=== PATIENT | male | born 1965 | race Caucasian/White ===

== ENCOUNTER 2020-08-06 08:21 | Outpatient (REF) | payer BC, SELFPAY ==
[2020-08-06 10:20] LABS: Hematocrit 46.2 % (42-52); Hemoglobin 15.5 g/dl (14.0-18.0); Mean Corpuscular HGB Conc 33.5 g/dl (31.0-36.0); Mean Corpuscular Hemoglobin 31.4 pg (27.0-33.0); Mean Corpuscular Volume 93.5 fL (80-98); Mean Platelet Volume 11.1 fL (9.4-12.4); Platelet Count 208 X10*3/uL (160-400); Red Blood Count 4.94 X10*6/uL (4.60-5.80); Red Cell Distribution Width 12.4 % (11.0-16.0); White Blood Count 4.1 X10*3/uL (4.8-10.8)
[2020-08-06 10:29] LABS: Alanine Aminotransferase 19 U/L (0-40); Albumin Level 4.6 g/dL (3.5-5.0); Alkaline Phosphatase 63 U/L (39-117); Anion Gap 18 (12-20); Aspartate Amino Transferase 19 U/L (5-37); Bilirubin Direct 0.3 mg/dL (0.0-0.5); Bilirubin Total 0.8 mg/dL (0.0-1.0); Blood Urea Nitrogen 11 mg/dL (9-16); Calcium 9.3 mg/dL (8.4-10.2); Carbon Dioxide 22 mmol/L (22-29); Chloride 102 mmol/L (96-108); Cholesterol 175 mg/dL; Estimated Glomerular Filt Rate > 60; Glucose Random 103 mg/dL (60-115); HDL Cholesterol 45 mg/dL; LDL Cholesterol Calculated 111 mg/dl; Potassium 4.5 mmol/l (3.3-5.1); Sodium 137 mmol/L (135-145); Total Protein 7.1 g/dL (6.5-8.0); Triglycerides 98 mg/dL
== END 2020-08-06 08:22 | disposition home or self-care (01) ==
LOC: HO.10HDL 08:21
PROVIDERS: Visit Provider Internal Medicine
DX: I10 Essential (primary) hypertension (principal)
CPT/HCPCS: 36415; 80048; 80061; 80076; 85027

== ENCOUNTER → 2021-01-12 11:21 | Outpatient (BNVA) | payer BC, SELFPAY | PROVIDERS: PCP Internal Medicine; Visit Provider Surgery Vascular Surgery ==

== ENCOUNTER 2021-02-02 07:57 | Outpatient (REF) | payer BC, SELFPAY ==
--- NOTE | ~2021-02-02 | US_ITS ---
EXAMINATION: NONINVASIVE ASSESSMENT OF THE ARTERIES OF BOTH LOWER EXTREMITIES WITH ANKLE PRESSURE MEASUREMENTS, ANKLE BRACHIAL INDICES, PVR MEASUREMENTS AND BILATERAL LOWER EXTREMITY DUPLEX. CLINICAL INFORMATION: Peripheral vascular disease TECHNIQUE: Ankle pressure measurements, ankle brachial indices and PVR tracings were obtained of the lower extremity arterial system bilaterally. In addition, duplex Doppler techniques with wave form analysis and measurement of velocities in the common femoral, profunda femoral, superficial femoral, popliteal and tibial arteries was performed. The study was performed only at rest. COMPARISON: None FINDINGS: NONINVASIVE ASSESSMENT OF THE ARTERIES OF BOTH LOWER EXTREMITIES WITH ABIs: RIGHT LEG: Right ankle-brachial index: 1.13 PVR (ankle): Decreased amplitude LEFT LEG: Ankle-brachial index: 1.09 PVR (ankle): Decreased amplitude BILATERAL LOWER EXTREMITY DUPLEX ULTRASOUND: RIGHT LEG: Common femoral artery: 71.5 cm/s, Diastolic flow reversal: Yes Profunda femoris artery: 41.3 cm/s, Diastolic flow reversal: Yes Superficial femoral artery (proximal): 67.3 cm/s, Diastolic flow reversal: Yes Superficial femoral artery (mid): 63.9 cm/s, Diastolic flow reversal: Yes Superficial femoral artery (distal): 41.8 cm/s, Diastolic flow reversal: Yes Popliteal artery: 36.4 cm/s, Diastolic flow reversal: Yes Posterior tibial artery: 53.6 cm/s, Diastolic flow reversal: Yes LEFT LEG: Common femoral artery: 58.2 cm/s, Diastolic flow reversal: Yes Profunda femoris artery: 47.6 cm/s, Diastolic flow reversal: Yes Superficial femoral artery (proximal): 78.3 cm/s, Diastolic flow reversal: Yes Superficial femoral artery (mid): 59.5 cm/s, Diastolic flow reversal: Yes Superficial femoral artery (distal): 41.3 cm/s, Diastolic flow reversal: Yes Popliteal artery: 40.4 cm/s, Diastolic flow reversal: Yes Posterior tibial artery: 41.3 cm/s, Diastolic flow reversal: Yes Fluid seen within the left popliteal fossa is most consistent with a small Urena's cyst. US/US arterial duplex LE BI IMPRESSION: RIGHT LEG: No evidence of right lower extremity arterial insufficiency by NITA or duplex criteria. LEFT LEG: No evidence of left lower extremity arterial insufficiency by NITA or duplex criteria. NITA Reference: - >0.97-1.25 = normal - no significant arterial disease - 0.75-0.96 = mild peripheral arterial disease - 0.5-0.74 = moderate peripheral arterial disease - <0.50 = severe peripheral arterial disease
== END 2021-02-02 07:58 | disposition home or self-care (01) ==
LOC: HO.US 07:57
PROVIDERS: Visit Provider Surgery Vascular Surgery
DX: I73.9 Peripheral vascular disease, unspecified (principal)
CPT/HCPCS: 93923; 93925

== ENCOUNTER → 2021-02-09 08:44 | Outpatient (BNVA) | payer BC, SELFPAY | PROVIDERS: PCP Internal Medicine; Visit Provider Surgery Vascular Surgery ==

== ENCOUNTER 2024-12-11 08:19 | Outpatient (REF) | payer BC, SELFPAY ==
--- OUTSIDE RECORDS SUMMARY | 2024-12-11 08:30 | XMS_ITS | Clinical Summary ---
Author Organization [facility] Address [address] [place] [address] Care Team Providers Care Pharmacy Clinical Coordinator Name Role Phone Unavailable Primary Care Provider Unavailabl e Immunizations Name Administration Dates Next Due Covid-19 (Pfizer) Dilution Required 11/16/2020,0 10/26/2020 Social History Tobacco Use Types Packs/Day Years Used Date Smoking Tobacco: Never Assessed Sex and Gender Information Value Date Recorded Sex Assigned at Male 10/26/2020 8:53 AM EDT Gender Identity Not on file Sexual Orientation Not on file Job Start Date Occupation Industry Not on file Not on file Not on file Plan of Treatment Health Maintenance Due Date Last Done Comments Hepatitis C Screening 1965 Depression Screening 1975 Preventative Health Evaluation 12/19/1981 DTap / Tdap / Td (1 - Tdap) 12/19/1982 Colon Cancer Screening (Colonoscopy) 12/19/2008 Shingrix-Zoster Vaccine (2 o f 2) 10/09/2021 08/14/2021 COVID-19 Vaccine (3 - 2023-2 5 season) 2024 11/16/2020, 10/26/2020 Influenza Vaccine (#1) 2024 07/07/2020 RSV Adult > 60+ Yrs or (1 - 1-dose 75+ series) 12/19/2038 Hepatitis B Vaccines Aged Out No long er eligible based on patient's age to complete this topic Pneumococcal Vaccine Aged Out No long er eligible based on patient's age to complete this topic RSV Ped < 20 months Aged Out No longe r eligible based on patient's age to complete this topic
--- OUTSIDE RECORDS SUMMARY | 2024-12-11 08:30 | XMS_ITS | Clinical Summary ---
Author Organization [facility] Address [address] [place] [address] Care Team Providers Care Applications Scientist Name Role Phone Pcp, No Primary Care Provider Unavailabl e Allergies No known active allergies Medications ALPRAZolam (XANAX) 0.5 MG tablet Take 0.5 mg by mouth nightly as needed. for sleep 10/29/2021 Active escitalopram (LEXAPRO) 10 MG tablet Take 10 mg by mouth daily. 09/24/2021 Active predniSONE (DELTASONE) 20 MG tabletIndication s:Acute gout involving toe of right foot, unspecified cause Take 3 tabs PO x 3 days, then 2 tabs PO x 3 days, then 1 tab PO x 3 days. With food. 18 tablet 11/10/2021 Active Active Problems No known active problems Immunizations Immunization Administration Dates Next Due Influenza, Quadrivalent (FLU ARIX, AFLURIA, FLULAVAL, FLUZONE) Preservative Free IM 07/07/2020 Zoster Vaccine Recombinant (Shingrix) 08/14/2021 Social History Tobacco Use Types Packs/Day Years Used Date Smoking Tobacco: Never Assessed Sex and Gender Information Value Date Recorded Sex Assigned at Not on file Legal Sex Male 8:48 AM EDT Gender Identity Not on file Sexual Orientation Not on file Last Filed Vital Signs Vital Sign Reading Time Taken Comments Blood Pressure 135/98 11/10/2021 9:01 AM EDT Pulse 89 11/10/2021 8:58 AM EDT Temperature 36.7 ??C (98.1 ??F) 11/10/2021 8:58 AM ED T Respiratory Rate - - Oxygen Saturation 98% 11/10/2021 8:58 AM EDT Inhaled Oxygen Concentration - - Weight 90.7 kg (200 lb) 11/10/2021 8:58 AM EDT Height 182.9 cm (6') 11/10/2021 8:58 AM EDT Body Mass Index 27.12 11/10/2021 8:58 AM EDT Plan of Treatment Health Maintenance Due Date Last Done Comments Hepatitis C Virus Screening 1965 HIV Screening 12/19/1976 DTaP/Tdap/Td Vaccines (1 - Tdap) 12/19/1982 Colonoscopy 12/19/2008 Pneumococcal Vaccines 50+ (1 of 1 - PCV) 12/19/2013 Zoster (Shingles) Vaccine (2 of 2) 10/09/2021 08/14/2021 COVID-19 Vaccine (4 - 2023-2 5 season) 2024 08/09/2021, 11/16/2020, 10/26/2020 Influenza Vaccine 02/28/2025 07/07/2020 RSV Vaccine 60 years and older and Patients (1 - 1-dose 75+ series) 12/19/2038 Hepatitis B Vaccines Aged Out No long er eligible based on patient's age to complete this topic Insurance [facility] PPO Care Teams Applications Scientist Relationship Specialty Start Date End Date Pcp, No PCP - General General Medicine 10/29/21
--- OUTSIDE RECORDS SUMMARY | 2024-12-11 08:30 | XMS_ITS | Data Portability ---
Author Organization [place] [facility] Address [address] [place] [address] Care Team Providers Care Paratransit Driver Name Role Phone RAMIRO HERRERA Primary Care Provider Assessment Encounter Date Assessment Date Assessment LastModified by Organization Details LastModified Time 02/08/2023 02/08/2023 HPI : ?Thank you for the pleasure of requesting a consultation on this patient. Patient comes in complaining of left knee pain. He has been dealing with left knee pain for 42 years. He has a history of open left knee cartilage and meniscal surgery from 1981. He has had on and off treatment since then. His last injection was over 5 years ago. This patient is experiencing left knee pain for a period lasting greater than the last three months, which is severe (VAS score greater than or equal to 6 on a 0-10 scale) in intensity and the restriction of function (appropriate for a patient of this age) are intolerable. The pain substantially limits activities of daily living. In particular, walking tolerance and ability to stair climb is reduced. Conservative management such as non-steroidal anti-inflammatory medications available by prescription, physician directed therapy, ice and/or heat and activity modification have been minimally effective or deemed insufficient by the patient for a period lasting greater than 3-6 months in duration. Assistive devices and external support were not deemed by the patient to be helpful in improving their function. The patient is unable to tolerate further conservative measures, including physical therapy, due to the severity of arthritis and level of pain. Review of systems is negative for rapidly progressive neurological disorder, chest pain, shortness of breath, fevers, chills, or any signs of active or persistent local or systemic infection. Physical Exam : Patient is well nourished, well-developed, in no acute distress, with appropriate mood and affect. The patient is oriented to time, place, and person. Respirations are even and unlabored. Gait evaluation does reveal a limp. There is no inguinal adenopathy. Examination of the contralateral knee shows normal range of motion, strength, no tenderness, and intact skin. The affected limb is well-perfused, medial based skin incision, the knee shows a grossly normal motor and sensory examination. Left knee motion is significantly reduced and does cause significant pain. The knee moves from 10-115 degrees. The knee is stable within that [id number] to AP and ML stress. The alignment of the knee is varus. Muscle strength is normal. Pedal pulses are palpable. Hip examination, including flexion and internal rotation, was negative in that groin pain was not produced. Assessment/Plan : The patient is an appropriate candidate for consideration of left total knee replacement. An extensive discussion was conducted of the natural history of the disease and the variety of surgical and non-surgical treatment options available to the patient. A risk/benefit analysis was discussed with the patient reviewing the advantages and disadvantages of surgical intervention at this time. A full explanation was given of the nature and the purpose of the procedure and anesthesia, its benefits, possible alternative methods of diagnosis of treatment, the risks involved, the possibility of complications, the foreseeable consequences of the procedure and the possible results of the non-treatment. No guarantee or assurance was made as to the results that may be obtained. Specifically, the risks were identified to include, but are not limited, to the following: Infection, phlebitis, pulmonary embolism, , paralysis, dislocation, pain, stiffness, instability, limp, weakness, breakage, leg-length inequality, uncontrolled bleeding, nerve injury, blood vessel injury, pressure sores, anesthetic risks, delayed healing of wound and bone, and wear and loosening. Additional risks of robotic knee replacement were discussed (if used) including but not limited to pin site infection, draining, longer incision, longer OR time, and fracture near the pin sites. Further discussion was undertaken with the patient about the details of surgical preparation, treatment and postoperative rehabilitation including medical clearance, autotransfusion, the hospital course and the postoperative rehabilitation involved. As a part of routine preoperative counseling, if the patient is a smoker, the patient recognizes the increased risk of complications in patients who utilize tobacco products. The patient has also been counseled regarding the elevated risk of surgical complications in patients with an elevated BMI. The patient demonstrates understanding of the increased risk in such patients. The patient was encouraged to participate in physical activity and diet modification under the direction of their primary care physician. We will plan on proceeding with left total knee arthroplasty using the [employer] total knee replacement system. However, it is possible during the preoperative planning process or due to intraoperative findings that a different implant system may be utilized in order to optimize the patient's outcome. We had a discussion regarding implant and bearing options. We had a detailed discussion of the advantages and limitations of the specific implant designs, materials and bearing surfaces. All questions were answered to the patient's satisfaction, and the patient was asked to call the office with any further concerns. All in all, I feel that this patient is a good candidate for surgical reconstruction.? Plan for left total knee replacement, robotic assisted, at [facility]. Not available 02/08/2023 14:20:37 Plan of Treatment Reminders Order Date Submit Date Provider Last Modified By Organization Details Last Modified Time Details Appointments None recorded. Lab None recorded. Referral None recorded. Procedures None recorded. Surgeries total knee replacement (SURG) 2022 023 0 [facility], [address] [place], [address], 3 15:10:21 Imaging XR, knee, 4 or more view 2022 023 [email or web address], [address], [place], [address], 14:23:47 Medication Orders None recorded. Patient TargetsNo targets recorded. Patient Instructions Encounter Date Encounter Id Patient Instructions Last Modified By Organization Details Last Modified Time 02/08/2023 [id number] AP, lateral, Boyer, and patellar radiographs views of the left knee taken today demonstrate left knee degenerative joint disease with joint space narrowing, osteophyte formation, and subchondral sclerosis. There is [id number] articulation in the medial compartment. Not available 02/08/2023 14:22:00 Reason for Referral None Reported. Problems Name Problem SNOMED Code Status Onset Date Resolution Date Notes Provider Name and Address Organization Details Recorded Time Osteoarthri tis of left knee joint 7229474110185 09 Active 2022 Adriano Hui MD [address], [place], [address], [place] [facility], [facility] 3 14:18:39 Arthritis of knee 670895974 Active 2022 Adriano Hui MD [address], [place], [address], [place] [facility], [facility] 3 14:20:32 Problem Notes None recorded. Procedures Surgical History Date Name Laterality Status Provider Name and Address Organization Details Recorded Time [facility]nee [facility] 02/08/2023 13:58:11 Imaging Results None recorded. Procedure Notes None recorded. Medical Equipment None Reported. Allergies No known drug allergies Medications Not known to be on any medication Vitals Date Recorded Body height Body mass index (BMI) Body weight Provider Name and Address Organization Details Last Updated DateTime 02/08/2023 182.88 cm 27.8 kg/m2 32465.44 g [facility] 02/08/2023 13:57:47 Social History None recorded. Functional Status None recorded. Mental Status None recorded. Family History Nothing Reported. Medical History Condition Response Gout Y Past Encounters Encounter ID Performer Location Encounter Start Date Encounter Closed Date Diagnosis/Indication Diagnosis SNOMED-CT Code Diagnosis ICD10 Code Diagnosis Note [id number] MD NAVEED Dawkins [address] [place] [address] 02/08/2023 13:46:32 02/08/2023 14:23:47 Pain of left knee joint [id number] 64102 M25.562 Osteoarthr itis of left knee joint 5879863325 16776 M17.12 Arthritis of knee 983631 002 M13.869 Health Concerns Section Related Observation LastModified by Organization Detai ls LastModified Time None Recorded Concern Status LastModified by Organization Details LastModified Time None Recorded Advance Directives Directive None Recorded Payers Encounter Date Sequence Insurance Name Policy Number Policy Siu Covered Member ID Siu Member ID Guarantor Name 02/08/2023 1 [place]: TELMA SMITH [id number] Ney Galdamez [id number] Ney Galdamez
[2024-12-11 09:59] LABS: Appearance Urine Clear; Color Urine Yellow; Glucose Urine UA Negative (Negative); Leukocyte Esterase Urine Negative (Negative); Nitrite Urine Negative (Negative); Specific Gravity - Urine <= 1.005 (1.005-1.025); Urine Blood Negative (Negative); Urine Ketones Negative (Negative); Urine Protein Negative (Neg-Trace)
[2024-12-11 10:04] LABS: Hematocrit 47.5 % (42.0-52.0); Hemoglobin 16.6 g/dl (14.0-18.0); Mean Corpuscular HGB Conc 34.9 g/dl (31.0-36.0); Mean Corpuscular Hemoglobin 31.4 pg (27.0-33.0); Mean Platelet Volume 10.2 fL (9.4-12.4); Platelet Count 224 X10*3/uL (160-400); Red Blood Count 5.28 X10*6/uL (4.60-5.80); Red Cell Distribution Width 12.9 % (11.0-16.0); White Blood Count 6.2 X10*3/uL (4.8-10.8)
[2024-12-11 10:15] LABS: Estimated Average Glucose 111 mg/dL; Hemoglobin A1C 155.7632 umol/L; Hemoglobin A1c % 5.5 % (<6.0); Total Hemoglobin (HGBA1C) 4242.1478 umol/L
[2024-12-11 10:45] LABS: Prostate Specific Antigen Scr 2.35 ng/mL (<0.05-4.0)
[2024-12-11 10:48] LABS: Alanine Aminotransferase 39 U/L (0-40); Albumin Level 4.6 g/dL (3.5-5.0); Alkaline Phosphatase 78 U/L (39-117); Anion Gap 15 (12-20); Aspartate Amino Transferase 32 U/L (5-37); Bilirubin Direct 0.2 mg/dL (0.0-0.5); Bilirubin Total 0.9 mg/dL (0.0-1.0); Blood Urea Nitrogen 11 mg/dL (9-16); Calcium 9.6 mg/dL (8.4-10.2); Carbon Dioxide 25 mmol/L (22-29); Chloride 101 mmol/L (96-108); Cholesterol 221 mg/dL (<200); Estimated Glomerular Filt Rate > 60; Glucose Random 107 mg/dL (60-115); HDL Cholesterol 56 mg/dL (>40); LDL Cholesterol Calculated 134 mg/dL (<100); Potassium 4.1 mmol/L (3.3-5.1); Sodium 137 mmol/L (135-145); Thyroid Stimulating Hormone 1.69 uIU/mL (0.32-4.0); Total Protein 7.2 g/dL (6.5-8.0); Triglycerides 158 mg/dL (<150)
== END 2024-12-11 08:20 | disposition home or self-care (01) ==
LOC: HO.10HDL 08:19
PROVIDERS: Visit Provider Internal Medicine
DX: F41.1 Generalized anxiety disorder (principal); I73.9 Peripheral vascular disease, unspecified; Z12.5 Encounter for screening for malignant neoplasm of prostate; Z13.1 Encounter for screening for diabetes mellitus; Z13.6 Encounter for screening for cardiovascular disorders
CPT/HCPCS: 36415; 80048; 80061; 80076; 81003; 83036; 84153; 84443; 85027

== ENCOUNTER 2024-12-12 08:10 | Outpatient (AMB) | payer BC, SELFPAY ==
--- OUTSIDE RECORDS SUMMARY | 2024-12-12 08:13 | XMS_ITS | Clinical Summary ---
Author Organization [facility] Address [address] [place] [address] Care Team Providers Care Stonemason Apprentice Name Role Phone Pcp, No Primary Care [...] patient's age to complete this topic Insurance [facility] PPO Care Teams Stonemason Apprentice Relationship Specialty Start Date End Date Pcp, No PCP - General General Medicine 10/29/21
[2024-12-12 08:23] VITALS: BP 150/110; PULSE 101; RESP 24; TEMP 37.2; O2SAT 99; BMI 29.2
--- NOTE | 2024-12-12 08:23 | MHC.PC.OV ---
Vital Signs 12/12/24 08:23 12/12/24 09:17 Height 6 ft Weight 215 lb 6.4 oz BMI 29.2 BP 150/110 H 156/98 H Blood Pressure Location Lt brachial Lt brachial Position Sitting Sitting Respiration 24 H Pulse 101 H 98 Pulse Source Pulse Oximeter Auscultation Temp 99.0 F Temp Source Oral Pulse Oximetry (%) 99 Oxygen Delivery Method Room Air Intake Visit Reasons: annual exam Supervisory Historian Required: No Accompanied by: Self / Same As Patient Allergies No Known Allergies Allergy (Verified 12/12/24 08:52) Medication List - Last Reconciled 12/12/24 by ALEJANDRO Amaya No Known Home Meds Tobacco use date assessed: 12/12/24 Dental Screening Dental Screen Date: 12/12/24 Did you have a dental visit in the last 12 months?: Yes Did you have a dental problem in the last 6 months where you did not have access to dental care?: No Was dental information given to patient?: Patient has dentist HPI annual exam HPI Details Dentist: up to date Eye: in while, encouraged to make an appt Snellen: Right: Left: Corrected vision:supposed to wear glasses at night for glare, but he does not drive at night STI screening: Colonoscopy: declines colonoscopy, will try cologuard test instead Pap Smer:n/a PHQ-9: Flu:Did not get it last year shingle vaccine: up to date Pneumonia vaccine:will follow up for the pneumonia vaccine COVID: x3 Tdap:no record Diet: regular Exercise: used to walk a lot, left knee pain preventing him psychiatry: reports never have one, but would like to be referred Therapy: [facility], cannot remember the name, was going every weeks SSRI:Does not remember taking any other medication besides xanax. Chart review, stated he stopped taking his lexapro. will refer the patient with psychiatry Alcohol: Reports drinking 6 beers in each setting/3 times a week Left knee: needs to be replaced-got scared and did not follow up. Reports that his orthopedic is in [place], [place]. HEALTH MAINTENANCE: - Patient has received the shingles vaccine (two doses) and routinely receives flu shots although not this year, and is aware he needs the pneumonia vaccine, now being above 60 years. - Regular dental check-ups every six months. - Instructed to pursue an eye examination due to a lapse in routine check-ups. - Reluctance towards blood screening for colorectal cancer with colonoscopy but showed interest in Cologuard testing. - Recommended dietary modifications to manage cholesterol, which was observed to be high. [facility] Medical History Generalized anxiety disorder PAD (peripheral artery disease) Raynaud's disease without gangrene Surgical History History of left knee surgery Family History Father Dementia Mother Breast cancer Brother No problems noted. Sister No problems noted. Other Mental health disorder Social History Housing: Condominium Alcohol intake: current Alcohol intake frequency: a few times a month Patient Tobacco Use Status: Never used Tobacco e-Cigarette/Vaping Use: Never Used Second Hand Smoke Exposure: No service: No Current occupational status: employed Cognitive needs: No Hearing needs: No Vision needs: No Questionnaire PHQ-9 Over the last 2 weeks, how often have you been bothered by any of the following problems? 1. Little interest or pleasure in doing things: several days 2. Feeling down, depressed, or hopeless: several days 3. Trouble falling or staying asleep, or sleeping too much: several days 4. Feeling tired or having little energy: several days 5. Poor appetite or overeating: several days 6. Feeling bad about yourself - or that you are a failure or have let yourself or your family down: several days 7. Trouble concentrating on things, such as reading the newspaper or watching television: several days 8. Moving or speaking so slowly that other people could have noticed. Or the opposite - being so fidgety or restless that you have been moving around a lot more than usual: several days 9. Thoughts that you would be better off or of hurting yourself in some way: several days Total score: 9 Depression Screening Interpretation: Positive Depression Screening Done: Yes 36086 - PHQ-9 Billing: Yes Source: Developed by Payton PinedoW. Christiano, Art Marshall and colleagues, with an educational maría elena from [employer]. Thrive Questionnaire Date Thrive assessed: 12/12/24 I am a: Patient What is your living situation today?: I have a steady place to live Within the past 12 months, did the food you bought not last and you didn't have the money to get more?: Never true Within the past 12 months, did you worry whether your food would run out before you got money to buy more?: Never true Do you have trouble paying for medicines?: No Do you have trouble getting transportation to medical appointments?: No Do you have trouble paying your heating and electricity bill?: No Do you have trouble taking care of your child, family member or friend?: No Do you have trouble with day-to-day activities such as bathing, preparing meals, shopping, managing finances, etc.?: No Are you currently unemployed and looking for a job?: No Are you interested in more education?: No Please select the resources that you would like help with: None Currently or been in a relationship where the following occur: No concerns reported THRIVE Score: 0 AUDIT C Alcohol Use Questionnaire (AUDIT-C) 1. How often do you have a drink containing alcohol?: 2-3 times a week 2. How many drinks containing alcohol do you have on a typical day when you are drinking?: 3 or 4 3. How often do you have six or more drinks on one occasion?: Weekly Total Score: 7 Score Reviewed/Action Taken: Yes JOSE-7 AMB Questionnaire JOSE-7 Date JOSE - 7 assessed: 12/12/24 Feeling nervous, anxious, or on edge: 3 = Nearly every day Not being able to stop or control worryin = Nearly every day Worrying too much about different things: 3 = Nearly every day Trouble relaxin = Nearly every day Being so restless that it is hard to sit still: 3 = Nearly every day Becoming easily annoyed or irritable: 3 = Nearly every day Feeling afraid as if something awful might happen: 3 = Nearly every day Total JOSE-7 score (0-4 normal; 5-9 mild; 10-14 moderate; 15-21 severe): 21 Source: Developed by Payton Pinedo Kurt Kroenke and colleagues, with an educational maría elena from [employer]. JOSE-7 Assessment Billing JOSE-7 Assessment Tool: JOSE-7 Assessment 27528 Review of Systems Const Denies headache(s) Eyes Denies loss of vision ENT Denies vertigo, Denies dizziness, Denies headache(s) and Denies sore throat Card Denies chest pain, Denies leg edema and Denies lightheadedness Resp Denies cough, Denies hemoptysis and Denies wheezing GI Denies abdominal pain, Denies melena, Denies constipation, Denies diarrhea and Denies vomiting Denies dysuria, Denies urinary frequency and Denies urinary urgency Musc Reports arthralgias (left knee pain), Denies joint swelling, Denies numbness and Denies tingling Neuro Denies Abnormal speech present, Denies behavioral changes, Denies vertigo, Denies dizziness, Denies headache(s), Denies loss of vision, Denies memory loss, Denies numbness and Denies tingling Psych Reports anxiety, Denies behavioral changes, Reports depression, Denies memory loss and Reports panic attacks Toñito/Lymph Denies easy bleeding and Denies easy bruising Aller/Immun Denies wheezing Physical exam (Primary Care) Vital Signs: Last Vital Signs Temp 99.0 F 12/12/24 08:23 Pulse 101 H 12/12/24 08:23 Resp 24 H 12/12/24 08:23 BP 150/110 H 12/12/24 08:23 Pulse Ox 99 12/12/24 08:23 Oxygen Delivery Method Room Air 12/12/24 08:23 BMI result Body Mass Index 29.2 Tobacco/Smoking Status: Tobacco use Status Tobacco use date assessed 12/12/24 12/12/24 08:32 Patient Tobacco Use Status Never used Tobacco 12/12/24 08:32 e-Cigarette/Vaping Use Never Used 12/12/24 08:32 PHQ-9: PHQ-9 Score PHQ-9: Total score 9 12/12/24 08:50 Depression Screening Interpretation: Positive Thrive Assessment: Date of Thrive Assessment Date Thrive assessed 12/12/24 12/12/24 08:32 Currently or been in a relationship where the following occur: No concerns reported Const General: healthy appearing, no acute distress, alert and awake Nutritional Appearance: well nourished Orientation/consciousness: oriented to person, oriented to place and oriented to time HENMT Ears: TM's normal bilaterally General nose exam: Normal nasal mucous membranes and turbinates present Eyes Conjunctivae: conjunctivae normal Sclerae: sclerae normal Pupils: Equal, round and reactive pupils present Neck Neck: Yes no lymphadenopathy and Yes no JVD Thyroid: Thyroid normal Carotids: no bruits Resp Effort & Inspection: normal respiratory effort and not tachypneic Auscultation: no crackles, no rales, no rhonchi and no wheezes Cardio Rate: regular rate Rhythm: regular rhythm Heart sounds: no murmurs and normal S1 and S2 GI Palpation (GI): Soft to palpation, nontender, no hepatomegaly and no splenomegaly Auscultation: normal bowel sounds Skin General skin exam: no rashes or lesions noted and dry skin Neuro General: oriented to person, oriented to place and oriented to time Cranial nerves: Yes Equal, round and reactive pupils present Speech: No Abnormal speech present Gait exam (Neuro): Normal gait present Motor exam (neuro): no tremor noted Extrem Right upper extremity: full ROM Left upper extremity: full ROM Right lower extremity: full ROM; no edema Left lower extremity: full ROM and knee Details: no tenderness; no edema Psych Mental Status: mental status grossly normal Speech and movement: Normal speech and movement present Affect: Anxious affect present Attitude: cooperative Thought process: Normal thought process present Office Procedures EKG [id number], Complete Immunizations Boostrix Tdap 2.5 Lf unit-8 mcg-5 Lf/0.5 mL intramuscular syringe Performing Provider: ALEJANDRO Amaya [facility] Administered by: Kiera Galarza CMA on 12/12/24 09:13 Dose Route Admin Location Dispensed Lot Number Expiration Date FORMERLY NAMED [facility] Zipper Cutter 0.5 mL IM Right Deltoid 0.5 mL [id number] 03/25/27 35903-402-32 [employer] VIS Given Date VIS Provided VIS Publication Date 12/12/24 Single Vaccine 24 Eligibility Eligibility Date Funding Source Not [facility] Eligible 12/12/24 Private Results Reviewed Results Reviewed: Laboratory Tests 12/11/24 08:25 WBC 6.2 RBC 5.28 Hgb 16.6 Hct 47.5 MCV 90.0 MCH 31.4 RDW 12.9 Plt Count 224 Sodium 137 Potassium 4.1 Chloride 101 Carbon Dioxide 25 Anion Gap 15 BUN 11 Creatinine 1.20 Estimated GFR > 60 Random Glucose 107 Estimat Average Glucose 111 Hemoglobin A1c % 5.5 Calcium 9.6 Total Bilirubin 0.9 Direct Bilirubin 0.2 AST 32 ALT 39 Alkaline Phosphatase 78 Total Protein 7.2 Albumin 4.6 Triglycerides 158 H Cholesterol 221 H LDL Cholesterol, Calc 134 H HDL Cholesterol 56 PSA Screen 2.35 TSH 1.69 Urine Color Yellow Urine Appearance Clear Urine pH 7.0 Ur Specific [place]iskey <= 1.005 Urine Protein Negative Urine Glucose (UA) Negative Urine Ketones Negative Urine Blood Negative Urine Nitrite Negative Ur Leukocyte Esterase Negative Coding Level of Care Code Est Pt Prev Care 40-64y(04707) Diagnoses Annual physical exam Z00.00 Generalized anxiety disorder F41.1 Mixed hyperglyceridemia E78.3 Unilateral primary osteoarthritis, left knee M17.12 Hypertension, unspecified type I10 Hypertension type: unspecified CPT Codes EKG - CPT: [id number], Complete ([id number]) Additional Codes JOSE-7 Assessment Billing - JOSE-7 Assessment Tool: JOSE-7 Assessment 39366 ([id number]) PHQ-9 - 47314 - PHQ-9 Billing: Yes ([id number]) Time Spent (min) 38 Assessment & Plan Assessment & Plan (1) Annual physical exam: Code(s): Z00.00 - Encounter for general adult medical examination without abnormal findings Category: Medical Plan: Reviewed preventative guidelines and recent labs with the patient. Tdap given in office. Patient already received the shingles vaccine. And will be returning to [facility] for the pneumonia vaccine. Continued to decline colonoscopy, we will order a Cologuard test. (2) Generalized anxiety disorder: Code(s): F41.1 - Generalized anxiety disorder Category: Medical Plan: Patient anxious in office reports that he has been drinking heavily to cope with his anxiety. Per note review, the patient has stopped his SSRI a while back. He was weaned off Xanax, has not seen a therapist or psychiatrist in a while. Reluctant to start the patient on any medication for anxiety due to his heavy alcohol use. We will put in urgent referral to Psychiatry. 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 Encouraged lifestyle modification. We will recheck lipids in 3 months (4) Unilateral primary osteoarthritis, left knee: Code(s): M17.12 - Unilateral primary osteoarthritis, left knee Category: Medical Plan: Reports that he is on bone on bone. His orthopedics is in [facility], they had recommended for him to have surgery of the left knee sometime last year, but he did not follow through. Reports that he will reconnect with them. (5) HTN (hypertension): Code(s): I10 - Essential (primary) hypertension Category: Medical Qualifiers: Hypertension type: unspecified Qualified Code(s): I10 - Essential (primary) hypertension Plan: Patient reports that he was on medication with the pressure prior and he is not sure what happened. Blood pressure is elevated in office, suspecting that his anxiety is driving this as well. 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
[2024-12-12 09:17] VITALS: BP 156/98; PULSE 98
== END 2024-12-12 09:29 | disposition home or self-care (01) ==
PROVIDERS: PCP Internal Medicine
DX: Z00.00 Encounter for general adult medical examination without abnormal findings (principal); F41.1 Generalized anxiety disorder; E78.3 Hyperchylomicronemia; M17.12 Unilateral primary osteoarthritis, left knee; I10 Essential (primary) hypertension; Z23 Encounter for immunization

== ENCOUNTER → 2024-12-12 08:10 | Outpatient (BNVA) | payer BC, SELFPAY | PROVIDERS: PCP Internal Medicine | DX: Z00.00 Encounter for general adult medical examination without abnormal findings (principal); F41.1 Generalized anxiety disorder; E78.3 Hyperchylomicronemia; M17.12 Unilateral primary osteoarthritis, left knee; I10 Essential (primary) hypertension; I73.9 Peripheral vascular disease, unspecified; Z23 Encounter for immunization | CPT/HCPCS: 90471; 90715; 93005; 96127 ==

== ENCOUNTER → 2024-12-19 08:13 | Outpatient (BNVA) | payer BC, SELFPAY | PROVIDERS: PCP Internal Medicine ==

== ENCOUNTER 2025-03-12 08:06 | Outpatient (AMB) | payer BC, SELFPAY ==
--- OUTSIDE RECORDS SUMMARY | 2025-03-12 08:10 | XMS_ITS | Clinical Summary ---
Author Organization [facility] Address [address] [place] [address] Care Team Providers Care Animal Scientist Name Role Phone Unavailable Primary Care Provider [...] season) 2024 11/16/2020, 10/26/2020 Influenza Vaccine (#1) 2025 07/07/2020 RSV Adult > 60+ Yrs or [...]
--- OUTSIDE RECORDS SUMMARY | 2025-03-12 08:10 | XMS_ITS | Clinical Summary ---
Author Organization [facility] Address [address] [place] [address] Care Team Providers Care Summer Nanny Name Role Phone Pcp, No Primary Care [...] 89 11/10/2021 8:58 AM EDT Temperature 36.7 C (98.1 F) 11/10/2021 8:58 AM EDT Respiratory Rate - - Oxygen Saturation 98% [...] patient's age to complete this topic Insurance [facility] PPO Care Teams Summer Nanny Relationship Specialty Start Date End Date Pcp, No PCP - General General Medicine 10/29/21
[2025-03-12 08:19] VITALS: BP 136/88; PULSE 89; O2SAT 98
--- NOTE | 2025-03-12 08:19 | MHC.PC.OV ---
Vital Signs 03/12/25 08:19 Height 6 ft Weight 221 lb BMI 30.0 BP 136/88 Blood Pressure Location Lt brachial Position Sitting Pulse 89 Pulse Source Pulse Oximeter Pulse Oximetry (%) 98 Oxygen Delivery Method Room Air Intake Visit Reasons: 3 month Allergies No Known Allergies Allergy (Verified 03/12/25 08:31) Medication List - Last Reconciled 03/12/25 by ALEJANDRO Amaya hydroxyzine HCl 25 mg PO QID PRN lisinopril 20 mg PO DAILY sertraline 25 mg PO DAILY Tobacco use date assessed: 12/12/24 Dental Screening Dental Screen Date: 12/12/24 HPI 3 month HPI Details The patient is a 59-year-old male presenting with hypertension management. His blood pressure was previously recorded at 140 mmHg, and during this visit, it was noted to be 136 mmHg. He is currently taking lisinopril 20 mg. The patient also reports anxiety, which has been reduced by 50% with sertraline 25 mg daily. He uses hydroxyzine for acute anxiety episodes as needed and has significantly reduced his alcohol and coffee intake. The patient did not get his preordered labs completed for this appointment and he already ate this morning. He will go get this done as soon as he can. No complaints of pain today. Denies chest pain, sob, abdominal pain or change in bowel habits [facility] Medical History Generalized anxiety disorder PAD (peripheral artery disease) Raynaud's disease without gangrene Surgical History History of left knee surgery Family History Father Dementia Mother Breast cancer Brother No problems noted. Sister No problems noted. Other Mental health disorder Social History Housing: Condominium Alcohol intake: current Alcohol intake frequency: a few times a month Patient Tobacco Use Status: Never used Tobacco Tobacco use type: Cigarette e-Cigarette/Vaping Use: Never Used Second Hand Smoke Exposure: No service: No Current occupational status: employed Cognitive needs: No Hearing needs: No Vision needs: No Questionnaire PHQ-9 Over the last 2 weeks, how often have you been bothered by any of the following problems? 1. Little interest or pleasure in doing things: several days 2. Feeling down, depressed, or hopeless: several days 3. Trouble falling or staying asleep, or sleeping too much: several days 4. Feeling tired or having little energy: several days 5. Poor appetite or overeating: several days 6. Feeling bad about yourself - or that you are a failure or have let yourself or your family down: several days 7. Trouble concentrating on things, such as reading the newspaper or watching television: several days 8. Moving or speaking so slowly that other people could have noticed. Or the opposite - being so fidgety or restless that you have been moving around a lot more than usual: several days 9. Thoughts that you would be better off or of hurting yourself in some way: several days Total score: 9 Depression Screening Interpretation: Positive Depression Screening Done: Yes 26480 - PHQ-9 Billing: Yes Source: Developed by Drs. Chip Miller, Payton Alvarado, Art Marshall and colleagues, with an educational maría elena from [employer]. Thrive Questionnaire Date Thrive assessed: 12/12/24 I am a: Patient What is your living situation today?: I have a steady place to live Within the past 12 months, did the food you bought not last and you didn't have the money to get more?: Never true Within the past 12 months, did you worry whether your food would run out before you got money to buy more?: Never true Do you have trouble paying for medicines?: No Do you have trouble getting transportation to medical appointments?: No Do you have trouble paying your heating and electricity bill?: No Do you have trouble taking care of your child, family member or friend?: No Do you have trouble with day-to-day activities such as bathing, preparing meals, shopping, managing finances, etc.?: No Are you currently unemployed and looking for a job?: No Are you interested in more education?: No Please select the resources that you would like help with: None Currently or been in a relationship where the following occur: No concerns reported THRIVE Score: 0 AUDIT C Alcohol Use Questionnaire (AUDIT-C) 1. How often do you have a drink containing alcohol?: 2-3 times a week 2. How many drinks containing alcohol do you have on a typical day when you are drinking?: 3 or 4 3. How often do you have six or more drinks on one occasion?: Weekly Total Score: 7 Score Reviewed/Action Taken: Yes JOSE-7 AMB Questionnaire JOSE-7 Date JOSE - 7 assessed: 12/12/24 Source: Developed by Drs. Chip Miller, Payton Alvarado, Art Marshall and colleagues, with an educational maría elena from [employer]. Review of Systems Const Denies headache(s) Eyes Denies loss of vision ENT Denies vertigo, Denies dizziness, Denies headache(s) and Denies sore throat Card Denies chest pain, Denies leg edema and Denies lightheadedness Resp Denies cough, Denies hemoptysis and Denies wheezing GI Denies abdominal pain, Denies melena, Denies constipation, Denies diarrhea and Denies vomiting Denies dysuria, Denies urinary frequency and Denies urinary urgency Neuro Denies Abnormal speech present, Denies behavioral changes, Denies vertigo, Denies dizziness, Denies headache(s), Denies loss of vision and Denies memory loss Psych Reports anxiety (severity cut in half since started on medication and speaking to therapist), Denies behavioral changes, Denies depression, Denies memory loss and Denies panic attacks Toñito/Lymph Denies easy bleeding and Denies easy bruising Aller/Immun Denies wheezing Physical exam (Primary Care) Vital Signs: Last Vital Signs Pulse 89 03/12/25 08:19 BP 136/88 03/12/25 08:19 Pulse Ox 98 03/12/25 08:19 Oxygen Delivery Method Room Air 03/12/25 08:19 BMI result Body Mass Index 30.0 Tobacco/Smoking Status: Tobacco use Status Tobacco use date assessed 12/12/24 03/12/25 08:21 Patient Tobacco Use Status Never used Tobacco 03/12/25 08:21 Tobacco use type Cigarette 03/12/25 08:21 e-Cigarette/Vaping Use Never Used 03/12/25 08:21 PHQ-9: PHQ-9 Score PHQ-9: Total score 9 03/12/25 08:21 Depression Screening Interpretation: Positive Thrive Assessment: Date of Thrive Assessment Date Thrive assessed 12/12/24 03/12/25 08:21 Currently or been in a relationship where the following occur: No concerns reported Const General: healthy appearing, no acute distress, alert and awake Nutritional Appearance: well nourished Orientation/consciousness: oriented to person, oriented to place and oriented to time [facility] Ears: hearing grossly normal bilaterally General nose exam: Normal external nose present Eyes Conjunctivae: conjunctivae normal Sclerae: sclerae normal Pupils: Equal, round and reactive pupils present Neck Neck: Yes no lymphadenopathy and Yes no JVD Thyroid: Thyroid normal Carotids: no bruits Resp Effort & Inspection: normal respiratory effort and not tachypneic Auscultation: no crackles, no rales, no rhonchi and no wheezes Cardio Rate: regular rate Rhythm: regular rhythm Heart sounds: S1 normal heart sound present, S2 normal heart sound present, no murmurs and normal S1 and S2 GI Palpation (GI): Soft to palpation, nontender, no hepatomegaly and no splenomegaly Auscultation: normal bowel sounds Skin General skin exam: no rashes or lesions noted and dry skin Neuro General: oriented to person, oriented to place and oriented to time Cranial nerves: Yes Equal, round and reactive pupils present Speech: No Abnormal speech present Gait exam (Neuro): Normal gait present Motor exam (neuro): no tremor noted Extrem Right upper extremity: full ROM Left upper extremity: full ROM Right lower extremity: full ROM; no edema Left lower extremity: full ROM; no edema Psych Mental Status: mental status grossly normal Speech and movement: Normal speech and movement present Affect: normal affect Attitude: cooperative Thought process: Normal thought process present Coding Level of Care Code Est Pt Level 3 (05072) Diagnoses Generalized anxiety disorder F41.1 Mixed hyperglyceridemia E78.3 Hypertension, unspecified type I10 Hypertension type: unspecified Additional Codes PHQ-9 - 22274 - PHQ-9 Billing: Yes ([id number]) Time Spent (min) 34 Assessment & Plan Assessment & Plan (1) Generalized anxiety disorder: Code(s): F41.1 - Generalized anxiety disorder Category: Medical Plan: On his previous visit: Patient anxious in office reports that he has been drinking heavily to cope with his anxiety. Per note review, the patient has stopped his SSRI a while back. He was weaned off Xanax, has not seen a therapist or psychiatrist in a while. Reluctant to start the patient on any medication for anxiety due to his heavy alcohol use. The patient was referred to psychiatry at [facility]. He was started on sertraline 25 mg daily and hydroxyzine 25 mg q.8H p.r.n.. Patient is a was also seen the therapist. Reports that his anxiety has cut down by at least 50% and he is doing much better. 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 Encouraged lifestyle modification. Patient did complete his preordered labs as yet. Reports that he will get this done as soon as possible. (3) HTN (hypertension): Code(s): I10 - Essential (primary) hypertension Category: Medical Qualifiers: Hypertension type: unspecified Qualified Code(s): I10 - Essential (primary) hypertension Plan: Patient reports that he was on medication with the pressure prior and he is not sure what happened. Blood pressure is elevated in office, suspecting that his anxiety is driving this as well. Reinforced dash diet Lisinopril 20 mg daily was started and he blood pressure has been doing better. Reinforced low-salt diet
== END 2025-03-12 10:29 | disposition home or self-care (01) ==
LOC: HO.HMCH 08:07
PROVIDERS: PCP Internal Medicine
DX: F41.1 Generalized anxiety disorder (principal); E78.3 Hyperchylomicronemia; I10 Essential (primary) hypertension

== ENCOUNTER → 2025-03-12 08:06 | Outpatient (BNVA) | payer BC, SELFPAY | PROVIDERS: PCP Internal Medicine | DX: F41.1 Generalized anxiety disorder (principal); I10 Essential (primary) hypertension; E78.3 Hyperchylomicronemia | CPT/HCPCS: 96127 ==

== ENCOUNTER 2025-04-10 08:23 | Outpatient (REF) | payer BC, SELFPAY ==
--- OUTSIDE RECORDS SUMMARY | 2025-04-10 09:23 | XMS_ITS | Clinical Summary ---
Author Organization [facility] Address [address] [place] [address] Care Team Providers Care Surface To Air Weapons Officer Name Role Phone Unavailable Primary Care Provider [...] 2) 10/09/2021 08/14/2021 COVID-19 Vaccine (3 - 2024-2 6 season) 2025 11/16/2020, 10/26/2020 Influenza Vaccine (#1) 2025 07/07/2020 [...]
--- OUTSIDE RECORDS SUMMARY | 2025-04-10 09:23 | XMS_ITS | Clinical Summary ---
Author Organization [facility] Address [address] [place] [address] Care Team Providers Care Barrel Cutter Name Role Phone Pcp, No Primary Care [...] patient's age to complete this topic Insurance [facility] PPO Care Teams Barrel Cutter Relationship Specialty Start Date End Date Pcp, No PCP - General General Medicine 10/29/21
--- OUTSIDE RECORDS SUMMARY | 2025-04-10 09:23 | XMS_ITS ---
Author Name [facility] Organization Unknown History of Medication Use Medication Directions Dispensed Refills Start Date End Date Stat us active Problems Problem Status Onset Date Problem Type Date of Resoluti on Source Osteoarthritis of left knee joint active 2023-02-08 ProblemAct [facility] Arthritis of knee active 2023-02-08 ProblemAct [facility] Encounters Encounter Type Encounter Reason Primary Diagnosis Location Date Ambulatory [facility] [place] 02/08/2023 Ambulatory [facility] [place] 02/06/2023 Ambulatory [facility] [place] 02/06/2023 Ambulatory [facility] [place] 01/19/2023 Ambulatory [facility] [place] 01/19/2023 Ambulatory Gout, unspecified [facility] 11/10/2021 Care Team Organization Name Specialty Phone Email Start Date End Da te [facility] [place] 202206/27/2023 [facility] 2022 [facility] 11/10/2021 03/18/2024 [facility] 11/10/2021 11/10/2021
[2025-04-10 11:26] LABS: Alanine Aminotransferase 40 U/L (0-40); Albumin Level 4.8 g/dL (3.5-5.0); Alkaline Phosphatase 69 U/L (39-117); Anion Gap 13 (12-20); Aspartate Amino Transferase 32 U/L (5-37); Blood Urea Nitrogen 17 mg/dL (9-16); Calcium 9.3 mg/dL (8.4-10.2); Carbon Dioxide 24 mmol/L (22-29); Chloride 102 mmol/L (96-108); Cholesterol 248 mg/dL (<200); Estimated Glomerular Filt Rate 56; HDL Cholesterol 49 mg/dL (>40); Potassium 4.2 mmol/L (3.3-5.1); Sodium 135 mmol/L (135-145); Total Protein 7.2 g/dL (6.5-8.0); Triglycerides 190 mg/dL (<150)
[2025-04-10 11:46] LABS: Appearance Urine Turbid; Glucose Urine UA Negative (Negative); PH 5.5 (5.0-9.0); Specific Gravity - Urine 1.020 (1.005-1.025)
== END 2025-04-10 08:24 | disposition home or self-care (01) ==
LOC: HO.10HDL 08:23
DX: I73.9 Peripheral vascular disease, unspecified (principal); I73.00 Raynaud's syndrome without gangrene; E78.3 Hyperchylomicronemia; F41.1 Generalized anxiety disorder
CPT/HCPCS: 36415; 80053; 80061; 81003; 82306; 84443

== ENCOUNTER 2025-06-12 13:47 | Outpatient (AMB) | payer BC, SELFPAY ==
[2025-06-12 13:50] VITALS: BP 112/78; PULSE 119; RESP 18; TEMP 36.5; O2SAT 99; BMI 30.7
--- NOTE | 2025-06-12 13:50 | A.OFFPC_ITS ---
Vital Signs 06/12/25 13:50 Height 6 ft Weight 226 lb 4 oz BMI 30.7 BP 112/78 Blood Pressure Location Lt brachial Position Sitting Respiration 18 Pulse 119 H Pulse Source Pulse Oximeter Temp 97.7 F Temp Source Temporal Artery Scan Pulse Oximetry (%) 99 Oxygen Delivery Method Room Air Intake Visit Reasons: 3 months htn/anxiety Html Web Developer Required: No Accompanied by: Self / Same As Patient Allergies No Known Allergies Allergy (Verified 06/12/25 14:09) Medication List - Last Reconciled 06/12/25 by ALEJANDRO Amaya hydroxyzine HCl 25 mg PO QID PRN lisinopril 20 mg PO DAILY sertraline 25 mg PO DAILY Tobacco use date assessed: 06/12/25 Dental Screening Dental Screen Date: 06/12/25 Did you have a dental visit in the last 12 months?: Yes Did you have a dental problem in the last 6 months where you did not have access to dental care?: No Was dental information given to patient?: Patient has dentist HPI 3 months htn/anxiety HPI Details The patient is a 59-year-old male presenting for management of chronic conditions. He notes his cholesterol has increased recently. The patient has never taken cholesterol medication and is reluctant to start, preferring to manage it with diet and exercise. He has a history of hypertension, which is managed with a 0.25 mg dose of an unspecified medication. His blood pressure today was 112/80 mmHg. The patient receives care from a therapist for anxiety, for which he takes medication. He reports significant work-related stress but is retiring at the end of the year and anticipates this will improve his stress levels. He recently recovered from a cold with a severe cough over the past few weeks. The patient acknowledges he has not been following a consistent diet and exercise regimen but plans to start swimming and cardio exercises soon. [facility] Medical History Generalized anxiety disorder Raynaud's disease without gangrene PAD (peripheral artery disease) Surgical History History of left knee surgery Family History Father Dementia Mother Breast cancer Brother No problems noted. Sister No problems noted. Other Mental health disorder Social History Housing: Condominium Alcohol intake: current Alcohol intake frequency: a few times a month Patient Tobacco Use Status: Never used Tobacco Tobacco use type: Cigarette e-Cigarette/Vaping Use: Never Used Second Hand Smoke Exposure: No service: No Current occupational status: employed Cognitive needs: No Hearing needs: No Vision needs: No Questionnaire PHQ-9 Over the last 2 weeks, how often have you been bothered by any of the following problems? Depression Screening Interpretation: Positive Depression Screening Done: Yes Source: Developed by Drs. Chip Miller, Payton Alvarado, Art Marshall and colleagues, with an educational maría elena from [employer]. Thrive Questionnaire Date Thrive assessed: 12/12/24 I am a: Patient What is your living situation today?: I have a steady place to live Within the past 12 months, did the food you bought not last and you didn't have the money to get more?: Never true Within the past 12 months, did you worry whether your food would run out before you got money to buy more?: Never true Do you have trouble paying for medicines?: No Do you have trouble getting transportation to medical appointments?: No Do you have trouble paying your heating and electricity bill?: No Do you have trouble taking care of your child, family member or friend?: No Do you have trouble with day-to-day activities such as bathing, preparing meals, shopping, managing finances, etc.?: No Are you currently unemployed and looking for a job?: No Are you interested in more education?: No Please select the resources that you would like help with: None Currently or been in a relationship where the following occur: No concerns reported THRIVE Score: 0 JOSE-7 AMB Questionnaire JOSE-7 Date JOSE - 7 assessed: 12/12/24 Source: Developed by Drs. Chip Miller, Payton Alvarado, Art Marshall and colleagues, with an educational maría elena from [employer]. Review of Systems Const Denies headache(s) Eyes Denies loss of vision ENT Denies vertigo, Denies dizziness, Denies headache(s) and Denies sore throat Card Denies chest pain, Denies leg edema and Denies lightheadedness Resp Denies cough, Denies hemoptysis and Denies wheezing GI Denies abdominal pain, Denies melena, Denies constipation, Denies diarrhea and Denies vomiting Denies dysuria, Denies urinary frequency and Denies urinary urgency Neuro Denies Abnormal speech present, Denies behavioral changes, Denies vertigo, Denies dizziness, Denies headache(s), Denies loss of vision and Denies memory loss Psych Reports anxiety (severity cut in half since started on medication and speaking to therapist), Denies behavioral changes, Denies depression, Denies memory loss and Denies panic attacks Toñito/Lymph Denies easy bleeding and Denies easy bruising Aller/Immun Denies wheezing Physical exam (Primary Care) Vital Signs: Last Vital Signs Temp 97.7 F 06/12/25 13:50 Pulse 119 H 06/12/25 13:50 Resp 18 06/12/25 13:50 BP 112/78 06/12/25 13:50 Pulse Ox 99 06/12/25 13:50 Oxygen Delivery Method Room Air 06/12/25 13:50 BMI result Body Mass Index 30.7 Tobacco/Smoking Status: Tobacco use Status Tobacco use date assessed 06/12/25 06/12/25 13:54 Patient Tobacco Use Status Never used Tobacco 06/12/25 13:54 Tobacco use type Cigarette 06/12/25 13:54 e-Cigarette/Vaping Use Never Used 06/12/25 13:54 Depression Screening Interpretation: Positive Thrive Assessment: Date of Thrive Assessment Date Thrive assessed 12/12/24 06/12/25 13:54 Currently or been in a relationship where the following occur: No concerns reported Const General: healthy appearing, no acute distress, alert and awake Nutritional Appearance: well nourished Orientation/consciousness: oriented to person, oriented to place and oriented to time [facility] Ears: hearing grossly normal bilaterally General nose exam: Normal external nose present Eyes Conjunctivae: conjunctivae normal Sclerae: sclerae normal Pupils: Equal, round and reactive pupils present Neck Neck: Yes no lymphadenopathy and Yes no JVD Thyroid: Thyroid normal Carotids: no bruits Resp Effort & Inspection: normal respiratory effort and not tachypneic Auscultation: no crackles, no rales, no rhonchi and no wheezes Cardio Rate: regular rate Rhythm: regular rhythm Heart sounds: S1 normal heart sound present, S2 normal heart sound present, no murmurs and normal S1 and S2 GI Palpation (GI): Soft to palpation, nontender, no hepatomegaly and no splenomegaly Auscultation: normal bowel sounds Skin General skin exam: no rashes or lesions noted and dry skin Neuro General: oriented to person, oriented to place and oriented to time Cranial nerves: Yes Equal, round and reactive pupils present Speech: No Abnormal speech present Gait exam (Neuro): Normal gait present Motor exam (neuro): no tremor noted Extrem Right upper extremity: full ROM Left upper extremity: full ROM Right lower extremity: full ROM; no edema Left lower extremity: full ROM; no edema Psych Mental Status: mental status grossly normal Speech and movement: Normal speech and movement present Affect: normal affect Attitude: cooperative Thought process: Normal thought process present Coding Level of Care Code Est Pt Level 3 (72239) Diagnoses Generalized anxiety disorder F41.1 Mixed hyperglyceridemia E78.3 Hypertension, unspecified type I10 Hypertension type: unspecified Time Spent (min) 29 Assessment & Plan Assessment & Plan (1) Generalized anxiety disorder: Code(s): F41.1 - Generalized anxiety disorder Category: Medical Plan: On his previous visit: Patient anxious in office reports that he has been drinking heavily to cope with his anxiety. Per note review, the patient has stopped his SSRI a while back. He was weaned off Xanax, has not seen a therapist or psychiatrist in a while. Reluctant to start the patient on any medication for anxiety due to his heavy alcohol use. The patient was referred to psychiatry at [facility]. He was started on sertraline 25 mg daily and hydroxyzine 25 mg q.8H p.r.n.. Patient is a was also seen the therapist. Reports that his anxiety has cut down by at least 50% and he is doing much better. In office the patient reports experiences anxiety and an elevated heart rate, which is likely related to it. He sees a therapist for management of his anxiety . He is encouraged to continue with his therapist for ongoing care. Continue sertraline 25 mg daily. 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 He is reluctant to start m edication and prefers to focus on lifestyle changes, including diet and exercise. The plan is to monitor his cholesterol closely and recheck labs in three months. An electronic order for the lab work has been placed. (3) HTN (hypertension): Code(s): I10 - Essential (primary) hypertension Category: Medical Qualifiers: Hypertension type: unspecified Qualified Code(s): I10 - Essential (prim keesha) hypertension Plan: Patient reports that he was on medication with the pressure prior and he is not sure what happened. Blood pressure is elevated in office, suspecting that his anxiety is driving this as well Blood pressure 112/78 mmhg-systolic goal less than 130 mm hg. 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
--- OUTSIDE RECORDS SUMMARY | 2025-06-12 17:10 | XMS_ITS | Clinical Summary ---
Author Organization [facility] Address [address] [place] [address] Care Team Providers Care Behaviorist Name Role Phone Unavailable Primary Care Provider [...]
--- OUTSIDE RECORDS SUMMARY | 2025-06-12 17:10 | XMS_ITS | Clinical Summary ---
Author Organization [facility] Address [address] [place] [address] Care Team Providers Care Plate Filler Name Role Phone Pcp, No Primary Care [...] (Shingles) Vaccine (2 of 2) 10/09/2021 08/14/2021 Influenza Vaccine 02/28/2025 07/07/2020 COVID-19 Vaccine (4 - 2024-2 6 season) 2025 08/09/2021, 11/16/2020, 10/26/2020 RSV Vaccine 50 years and older and Patients (1 - 1-dose 75+ series) 12/19/2038 Hepatitis B Vaccines Aged Out No long er eligible based on patient's age to complete this topic Insurance [facility] PPO Care Teams Plate Filler Relationship Specialty Start Date End Date Pcp, No PCP - General General Medicine 10/29/21
== END 2025-06-12 14:21 | disposition home or self-care (01) ==
LOC: HO.HMCH 13:47
PROVIDERS: PCP Internal Medicine
DX: F41.1 Generalized anxiety disorder (principal); E78.3 Hyperchylomicronemia; I10 Essential (primary) hypertension